=== PATIENT | male | born 1970 | race Caucasian/White ===

== ENCOUNTER 2019-07-20 05:47 | Day surgery (SDC) | payer OTHER ==
[~2019-07-20] VITALS: Ht 182.9 cm; Wt 90.0 kg
[2019-07-20] VITALS (13 sets, daily range): BP systolic 113–136; BP diastolic 56–82; PULSE 62–77; RESP 16–25
[~2019-07-20 05:47] MED LIST: ATOR10TA65 PO; CHOL5000 PO; CIPR500T4 PO
[2019-07-20] MEDS ORDERED: CEFAZOLIN 2 GM/50 ML (PMX) 50 ML IVPB SCH (06:00)
[2019-07-20] MEDS ORDERED: SOD CHLORIDE 0.9% 1,000 ML IV SCH (06:00)
[2019-07-20] MEDS ORDERED: POLYMYXIN/BACITRACIN 1L IRRIG ONE (07:01)
[2019-07-20] MEDS ORDERED: ROPIVACAINE 0.5 % 30 ML VIAL ONE (07:29)
[2019-07-20] MEDS ORDERED: MIDAZOLAM 1 MG/ML 2 ML INJ ONE (07:29)
[2019-07-20] MEDS ORDERED: ROCURONIUM 50 MG INJ ONE ×2 (07:29→08:16)
[2019-07-20] MEDS ORDERED: PROPOFOL 20 ML ONE (07:29)
[2019-07-20] MEDS ORDERED: METOCLOPRAMIDE 10 MG INJ ONE (07:29)
[2019-07-20] MEDS ORDERED: CEFAZOLIN 1 GM INJ ONE (07:29)
[2019-07-20] MEDS ORDERED: ONDANSETRON 4 MG INJ IV PRN (07:30)
[2019-07-20] MEDS ORDERED: DIPHENHYDRAMINE 50 MG INJ IV PRN (07:30)
[2019-07-20] MEDS ORDERED: KETOROLAC 30 MG INJ IV PRN (07:30)
[2019-07-20] MEDS ORDERED: OXYCODONE/ACETAMINOPHEN (5/325) TAB PO PRN ×2 (07:30)
[2019-07-20] MEDS ORDERED: MEPERIDINE 25 MG INJ IV PRN (07:30)
[2019-07-20] MEDS ORDERED: HYDROmorphONE 1 MG/5 ML IV SYRINGE IV PRN ×3 (07:30)
[2019-07-20] MEDS ORDERED: FENTAnyl 50 MCG/ML VIAL IV PRN ×3 (07:30)
[2019-07-20] MEDS ORDERED: GLYCOPYRROLATE 0.4 MG INJ ONE (08:01)
[2019-07-20] MEDS ORDERED: KETOROLAC 30 MG INJ ONE (08:01)
[2019-07-20] MEDS ORDERED: NEOSTIGMINE 3 MG/3 ML SYRINGE ONE (08:01)
[2019-07-20] MEDS ORDERED: RACEPINEPHRINE 2.25%(NEB) 0.5 ML AMP ONE (08:57)
[2019-07-20] MEDS ORDERED: HYDROCODONE/APAP (5/325) TAB PO ONE (09:00)
[2019-07-20] MEDS ORDERED: RACEPINEPHRINE 2.25%(NEB) 0.5 ML AMP HHN ONE (09:00)
== END 2019-07-20 11:33 | disposition home or self-care (01) ==
LOC: SDS 05:47
PROVIDERS: ATTEND Surgery
DX: K40.30 Unilateral inguinal hernia, with obstruction, without gangrene, not specified as recurrent (principal); E78.5 Hyperlipidemia, unspecified
CPT/HCPCS: 49507; C1781; J0690; J1170; J1885; J2250; J2405; J2710; J2765; J2795; Z7512; Z7610